=== PATIENT | female | born 1990 | race American Indian/Alaskan Native ===

== ENCOUNTER 2017-07-25 11:29 | Emergency (ER) | payer SELFPAY ==
[2017-07-25 11:37] VITALS: BP 108/75
--- NOTE | 2017-07-25 13:05 | Emergency Department Report ---
ED ENT HPI - General Chief complaint: Earache Stated complaint: LEFT SIDE EAR PAIN Time Seen by Provider: 07/25/17 12:58 Source: patient Mode of arrival: Ambulatory Limitations: No Limitations - History of Present Illness Initial comments: This is a 26-year-old female nontoxic, well nourished in appearance, no acute signs of distress presents to the ED with c/o of left earache 1 day. Patient stated last week she had upper mastoid symptoms now developed ear pain. Patient denies any mastoid tenderness or ear canal discharge. Patient denies any tragus pain. Patient denies any headache, stiff neck, fever, chills, nausea , vomiting, chest pain instructed by. Patient denies any allergies or significant past medical history. Patient denies any hearing abnormalities or decreased. MD complaint: ear pain -: days(s) (1) Location: L ear Severity: mild Severity scale (0 -10): 8 Quality: aching Consistency: constant Improves with: none Worsens with: none Associated Symptoms: denies: fever, cough, gum swelling, toothache, pain with swallowing, sore throat, tinnitus, hearing loss, discharge from ear, rhinorrhea - Related Data Previous Rx's Medication Instructions Recorded Last Taken Type Amoxicillin [Amoxicillin TAB] 875 mg PO BID #20 tablet 04/30/15 Unknown Rx Ibuprofen [Motrin 800 MG tab] 800 mg PO Q8HR PRN #30 tablet 04/30/15 Unknown Rx Amoxicillin [Amoxicillin TAB] 875 mg PO BID #20 tablet 07/25/17 Unknown Rx Allergies Allergy/AdvReac Type Severity Reaction Status Date / Time No Known Allergies Allergy Unverified 04/30/15 13:20 ED Dental HPI - General Chief complaint: Earache Stated complaint: LEFT SIDE EAR PAIN Time Seen by Provider: 07/25/17 12:58 Source: patient Mode of arrival: Ambulatory Limitations: No Limitations - Related Data Previous Rx's Medication Instructions Recorded Last Taken Type Amoxicillin [Amoxicillin TAB] 875 mg PO BID #20 tablet 04/30/15 Unknown Rx Ibuprofen [Motrin 800 MG tab] 800 mg PO Q8HR PRN #30 tablet 04/30/15 Unknown Rx Amoxicillin [Amoxicillin TAB] 875 mg PO BID #20 tablet 07/25/17 Unknown Rx Allergies Allergy/AdvReac Type Severity Reaction Status Date / Time No Known Allergies Allergy Unverified 04/30/15 13:20 ED Review of Systems ROS: Stated complaint: LEFT SIDE EAR PAIN Other details as noted in HPI Constitutional: denies: chills, fever Eyes: denies: eye pain, eye discharge, vision change ENT: ear pain. denies: throat pain Respiratory: denies: cough, shortness of breath, wheezing Cardiovascular: denies: chest pain, palpitations Endocrine: no symptoms reported Gastrointestinal: denies: abdominal pain, nausea, diarrhea Genitourinary: denies: urgency, dysuria, discharge Musculoskeletal: denies: back pain, joint swelling, arthralgia Skin: denies: rash, lesions Neurological: denies: headache, weakness, paresthesias Psychiatric: denies: anxiety, depression Hematological/Lymphatic: denies: easy bleeding, easy bruising ED Past Medical Hx - Past Medical History Previous Medical History?: No - Medications Home Medications: Home Medications Medication Instructions Recorded Confirmed Last Taken Type Amoxicillin [Amoxicillin TAB] 875 mg PO BID #20 tablet 04/30/15 Unknown Rx Ibuprofen [Motrin 800 MG tab] 800 mg PO Q8HR PRN #30 tablet 04/30/15 Unknown Rx Amoxicillin [Amoxicillin TAB] 875 mg PO BID #20 tablet 07/25/17 Unknown Rx ED Physical Exam - General Limitations: No Limitations General appearance: alert, in no apparent distress - Head Head exam: Present: atraumatic, normocephalic - Eye Eye exam: Present: normal appearance - ENT ENT exam: Present: normal exam, normal orophraynx, mucous membranes moist - Expanded ENT Exam Expanded Ear exam: Present: normal external inspection TM/Canal exam: Erythema: Left TM, Bulging: Left TM Mouth exam: Present: normal external inspection, tongue normal. Absent: drooling, trismus, muffled voice, tongue elevation, laceration Teeth exam: Present: normal inspection Throat exam: Positive: normal inspection, other (Uvula midline. ). Negative: tonsillar erythema, tonsillomegaly, tonsillar exudate, R peritonsillar mass, L peritonsillar mass - Neck Neck exam: Present: normal inspection - Respiratory Respiratory exam: Present: normal lung sounds bilaterally. Absent: respiratory distress - Cardiovascular Cardiovascular Exam: Present: regular rate, normal rhythm. Absent: systolic murmur, diastolic murmur, rubs, gallop - GI/Abdominal GI/Abdominal exam: Present: soft, normal bowel sounds - Extremities Exam Extremities exam: Present: normal inspection - Back Exam Back exam: Present: normal inspection - Neurological Exam Neurological exam: Present: alert, oriented X3 - Psychiatric Psychiatric exam: Present: normal affect, normal mood - Skin Skin exam: Present: warm, dry, intact, normal color. Absent: rash ED Course Vital Signs 07/25/17 11:34 Temperature 97.8 F Pulse Rate 81 Respiratory 16 Rate Blood Pressure 108/75 O2 Sat by Pulse 97 Oximetry - Reevaluation(s) Reevaluation #1: 07/25/17 13:04 Patient is speaking in full sentences with no signs of distress noted. ED Medical Decision Making - Medical Decision Making this is a 26-year-old that presents with left otitis media. Upon examination there is no mastoid tenderness, ear canal discharge, or tragus pain. Normal hearing. Patient is discharged with amoxicillin. Patient was instructed to Follow-up with a primary care/ENT doctor in 3-5 days or if symptoms worsen and continue return to emergency room as soon as possible. At time of discharge, the patient does not seem toxic or ill in appearance. No acute signs of distress noted. Patient agrees to discharge treatment plan of care. No further questions noted by the patient. Critical care attestation.: If time is entered above; I have spent that time in minutes in the direct care of this critically ill patient, excluding procedure time. ED Disposition Clinical Impression: Otitis media Qualifiers: Otitis media type: unspecified Laterality: left Qualified Code(s): H66.92 - Otitis media, unspecified, left ear Disposition: - TO HOME OR SELFCARE Is pt being admited?: No Does the pt Need Aspirin: No Condition: Stable Instructions: Otitis Media (ED), Amoxicillin (By mouth) Additional Instructions: Follow-up with a primary care/ENT doctor in 3-5 days or if symptoms worsen and continue return to emergency room as soon as possible. Prescriptions: Amoxicillin [Amoxicillin TAB] 875 mg PO BID #20 tablet Referrals: PRIMARY MD AMBER [Primary Care Provider] - 3-5 Days ROSHNI ALONSO MD [Staff Physician] - 3-5 Days [facility] [Outside] - 3-5 Days EDIL PARISH MD [Staff Physician] - 3-5 Days [facility] [Outside] - 3-5 Days Forms: Work/School Release Form(ED)
== END 2017-07-25 13:15 | disposition home or self-care (01) ==
LOC: ED 11:29
DX: H66.92 Otitis media, unspecified, left ear (principal)
CPT/HCPCS: 99282

== ENCOUNTER 2017-09-20 11:18 | Emergency (ER) | payer SELFPAY ==
--- NOTE | 2017-09-20 12:28 | Emergency Department Report ---
ED ENT HPI - General Chief complaint: Earache Stated complaint: EARACHE Time Seen by Provider: 09/20/17 12:18 Source: patient Mode of arrival: Ambulatory Limitations: No Limitations - History of Present Illness Initial comments: This is a 27-year-old female nontoxic, well nourished in appearance, no acute signs of distress presents to the ED with c/o of sore throat and left earache x2 days. Patient Patient describes sore throat as swallowing razer blades. Patient denies any mastoid tenderness or tragus pain. Patient denies any hearing changes or loss. Patient denies any fever, chills, headache, stiff neck , nausea, vomiting, chest pain, shortness of breath, numbness or tingling. Patient denies any drooling or hoarseness. Patient denies any allergies or significant past medical history. MD complaint: sore throat, ear pain -: days(s) (2) Location: L ear, throat Severity: mild Severity scale (0 -10): 8 Quality: aching Consistency: constant Improves with: none Worsens with: swallowing Associated Symptoms: gum swelling, toothache, pain with swallowing, sore throat. denies: fever, cough, tinnitus, hearing loss, discharge from ear, rhinorrhea - Related Data Previous Rx's Medication Instructions Recorded Last Taken Type Amoxicillin [Amoxicillin TAB] 875 mg PO BID #20 tablet 04/30/15 Unknown Rx Ibuprofen [Motrin 800 MG tab] 800 mg PO Q8HR PRN #30 tablet 04/30/15 Unknown Rx Amoxicillin [Amoxicillin TAB] 875 mg PO BID #20 tablet 07/25/17 Unknown Rx Amoxicillin [Amoxicillin TAB] 875 mg PO BID #20 tablet 09/20/17 Unknown Rx Ibuprofen [Motrin] 600 mg PO Q8H PRN #30 tablet 09/20/17 Unknown Rx Nystas/Diphen/Xyl Visc/Mylanta 15 ml MM Q4H PRN 10 Days ml 09/20/17 Unknown Rx [Magic Mouthwash] Allergies Allergy/AdvReac Type Severity Reaction Status Date / Time No Known Allergies Allergy Unverified 04/30/15 13:20 ED Dental HPI - General Chief complaint: Earache Stated complaint: EARACHE Time Seen by Provider: 09/20/17 12:18 Source: patient Mode of arrival: Ambulatory Limitations: No Limitations - Related Data Previous Rx's Medication Instructions Recorded Last Taken Type Amoxicillin [Amoxicillin TAB] 875 mg PO BID #20 tablet 04/30/15 Unknown Rx Ibuprofen [Motrin 800 MG tab] 800 mg PO Q8HR PRN #30 tablet 04/30/15 Unknown Rx Amoxicillin [Amoxicillin TAB] 875 mg PO BID #20 tablet 07/25/17 Unknown Rx Amoxicillin [Amoxicillin TAB] 875 mg PO BID #20 tablet 09/20/17 Unknown Rx Ibuprofen [Motrin] 600 mg PO Q8H PRN #30 tablet 09/20/17 Unknown Rx Nystas/Diphen/Xyl Visc/Mylanta 15 ml MM Q4H PRN 10 Days ml 09/20/17 Unknown Rx [Magic Mouthwash] Allergies Allergy/AdvReac Type Severity Reaction Status Date / Time No Known Allergies Allergy Unverified 04/30/15 13:20 ED Review of Systems ROS: Stated complaint: EARACHE Other details as noted in HPI Constitutional: denies: chills, fever Eyes: denies: eye pain, eye discharge, vision change ENT: throat pain, dental pain. denies: ear pain Respiratory: denies: cough, shortness of breath, wheezing Cardiovascular: denies: chest pain, palpitations Endocrine: no symptoms reported Gastrointestinal: denies: abdominal pain, nausea, diarrhea Genitourinary: denies: urgency, dysuria, discharge Musculoskeletal: denies: back pain, joint swelling, arthralgia Skin: denies: rash, lesions Neurological: denies: headache, weakness, paresthesias Psychiatric: denies: anxiety, depression Hematological/Lymphatic: denies: easy bleeding, easy bruising ED Past Medical Hx - Past Medical History Previous Medical History?: No - Surgical History Past Surgical History?: Yes Additional Surgical History: - Social History Smoking Status: Never Smoker Substance Use Type: None - Medications Home Medications: Home Medications Medication Instructions Recorded Confirmed Last Taken Type Amoxicillin [Amoxicillin TAB] 875 mg PO BID #20 tablet 04/30/15 Unknown Rx Ibuprofen [Motrin 800 MG tab] 800 mg PO Q8HR PRN #30 tablet 04/30/15 Unknown Rx Amoxicillin [Amoxicillin TAB] 875 mg PO BID #20 tablet 07/25/17 Unknown Rx Amoxicillin [Amoxicillin TAB] 875 mg PO BID #20 tablet 09/20/17 Unknown Rx Ibuprofen [Motrin] 600 mg PO Q8H PRN #30 tablet 09/20/17 Unknown Rx Nystas/Diphen/Xyl Visc/Mylanta 15 ml MM Q4H PRN 10 Days ml 09/20/17 Unknown Rx [Magic Mouthwash] ED Physical Exam - General Limitations: No Limitations General appearance: alert, in no apparent distress - Head Head exam: Present: atraumatic, normocephalic - Eye Eye exam: Present: normal appearance Pupils: Present: normal accommodation - ENT ENT exam: Present: mucous membranes moist - Expanded ENT Exam Expanded Ear exam: Present: normal external inspection TM/Canal exam: Erythema: Left TM, Bulging: Left TM Mouth exam: Present: normal external inspection, tongue normal. Absent: drooling, trismus, muffled voice, tongue elevation, laceration Teeth exam: Present: normal inspection Throat exam: Positive: tonsillar erythema, tonsillomegaly (2+), tonsillar exudate, other (Uvula midline. No abscess noted or swelling noted. ). Negative : R peritonsillar mass, L peritonsillar mass - Neck Neck exam: Present: normal inspection, full ROM, lymphadenopathy (bilateral tonsillar). Absent: tenderness, meningismus - Respiratory Respiratory exam: Present: normal lung sounds bilaterally. Absent: respiratory distress, wheezes, rales, rhonchi, stridor - Cardiovascular Cardiovascular Exam: Present: regular rate, normal rhythm, normal heart sounds. Absent: bradycardia, tachycardia, irregular rhythm, systolic murmur, diastolic murmur, rubs, gallop - GI/Abdominal GI/Abdominal exam: Present: soft, normal bowel sounds - Extremities Exam Extremities exam: Present: normal inspection, full ROM, normal capillary refill - Back Exam Back exam: Present: normal inspection, full ROM - Neurological Exam Neurological exam: Present: alert, oriented X3, normal gait - Psychiatric Psychiatric exam: Present: normal affect, normal mood - Skin Skin exam: Present: warm, dry, intact, normal color. Absent: rash ED Course Vital Signs 09/20/17 11:32 Temperature 97.8 F Pulse Rate 84 Respiratory 16 Rate Blood Pressure 103/75 O2 Sat by Pulse 100 Oximetry - Reevaluation(s) Reevaluation #1: 09/20/17 12:26 Patient is speaking in full sentences with no signs of distress noted. Critical care attestation.: If time is entered above; I have spent that time in minutes in the direct care of this critically ill patient, excluding procedure time. ED Disposition Clinical Impression: Tonsillitis with exudate Otitis media Qualifiers: Otitis media type: unspecified Laterality: left Qualified Code(s): H66.92 - Otitis media, unspecified, left ear Disposition: - TO HOME OR SELFCARE Is pt being admited?: No Does the pt Need Aspirin: No Condition: Stable Instructions: Ibuprofen (By mouth), Amoxicillin (By mouth) Additional Instructions: Follow-up with a ENT doctor in 3-5 days or if symptoms worsen and continue return to emergency room as soon as possible. Prescriptions: Amoxicillin [Amoxicillin TAB] 875 mg PO BID #20 tablet Ibuprofen [Motrin] 600 mg PO Q8H PRN #30 tablet PRN Reason: Pain Nystas/Diphen/Xyl Visc/Mylanta [Magic Mouthwash] 15 ml MM Q4H PRN 10 Days ml PRN Reason: Sore Throat Referrals: PRIMARY CAREMD [Primary Care Provider] - 3-5 Days EDIL PARISH MD [Staff Physician] - 3-5 Days [facility] [Outside] - 3-5 Days [facility] [Outside] - 3-5 Days Forms: Work/School Release Form(ED)
[2017-09-20 12:50] VITALS: BP 108/75
== END 2017-09-20 13:11 | disposition home or self-care (01) ==
LOC: ED 11:18
DX: J03.90 Acute tonsillitis, unspecified (principal); H66.92 Otitis media, unspecified, left ear; K08.89 Other specified disorders of teeth and supporting structures
CPT/HCPCS: 99282

== ENCOUNTER 2018-10-25 07:21 | Emergency (ER) | payer SELFPAY ==
[2018-10-25 07:53] VITALS: BP 109/78
--- NOTE | 2018-10-25 09:04 | Emergency Department Report ---
ED General Adult HPI - General Chief complaint: Sore Throat Stated complaint: SORE THROAT PAIN/(L) EAR PAIN Time Seen by Provider: 10/25/18 08:59 Source: patient Mode of arrival: Ambulatory Limitations: No Limitations - History of Present Illness Initial comments: Patient is a 28-year-old female who is presenting with 2 days of sore throat and left ear pain. Patient states was worse this morning when she woke up. Patient states the pain with swallowing is a 6 out of 10 in severity. She was aching throbbing sensation in the left ear. Patient has a very mild nonproductive cough. Patient denies nausea vomiting diarrhea next stiffness fevers or chills at this time. - Related Data Previous Rx's Medication Instructions Recorded Last Taken Type Amoxicillin [Amoxicillin TAB] 875 mg PO BID #20 tablet 04/30/15 Unknown Rx Ibuprofen [Motrin 800 MG tab] 800 mg PO Q8HR PRN #30 tablet 04/30/15 Unknown Rx Amoxicillin [Amoxicillin TAB] 875 mg PO BID #20 tablet 07/25/17 Unknown Rx Amoxicillin [Amoxicillin TAB] 875 mg PO BID #20 tablet 09/20/17 Unknown Rx Ibuprofen [Motrin] 600 mg PO Q8H PRN #30 tablet 09/20/17 Unknown Rx Nystas/Diphen/Xyl Visc/Mylanta 15 ml MM Q4H PRN 10 Days ml 09/20/17 Unknown Rx [Magic Mouthwash] Amoxicillin 500 mg PO TID #30 capsule 05/08/18 Unknown Rx Ibuprofen [Motrin] 800 mg PO Q8HR PRN #30 tablet 05/08/18 Unknown Rx Azithromycin [Zithromax Z-BALDOMERO] 250 mg PO DAILY #6 tablet 10/25/18 Unknown Rx HYDROcodone/ACETAMINOPHEN 10 ml PO Q6H PRN #100 solution 10/25/18 Unknown Rx [Hydrocodon-Acetamin 7.5-325/15] predniSONE [Deltasone] 20 mg PO QDAY #5 tab 10/25/18 Unknown Rx Allergies Allergy/AdvReac Type Severity Reaction Status Date / Time No Known Allergies Allergy Verified 10/25/18 07:23 ED Review of Systems ROS: Stated complaint: SORE THROAT PAIN/(L) EAR PAIN Other details as noted in HPI Comment: All other systems reviewed and negative ED Past Medical Hx - Past Medical History Previous Medical History?: No - Surgical History Past Surgical History?: Yes Additional Surgical History: - Social History Smoking Status: Never Smoker Substance Use Type: None - Medications Home Medications: Home Medications Medication Instructions Recorded Confirmed Last Taken Type Amoxicillin [Amoxicillin TAB] 875 mg PO BID #20 tablet 04/30/15 Unknown Rx Ibuprofen [Motrin 800 MG tab] 800 mg PO Q8HR PRN #30 tablet 04/30/15 Unknown Rx Amoxicillin [Amoxicillin TAB] 875 mg PO BID #20 tablet 07/25/17 Unknown Rx Amoxicillin [Amoxicillin TAB] 875 mg PO BID #20 tablet 09/20/17 Unknown Rx Ibuprofen [Motrin] 600 mg PO Q8H PRN #30 tablet 09/20/17 Unknown Rx Nystas/Diphen/Xyl Visc/Mylanta 15 ml MM Q4H PRN 10 Days ml 09/20/17 Unknown Rx [Magic Mouthwash] Amoxicillin 500 mg PO TID #30 capsule 05/08/18 Unknown Rx Ibuprofen [Motrin] 800 mg PO Q8HR PRN #30 tablet 05/08/18 Unknown Rx Azithromycin [Zithromax Z-BALDOMERO] 250 mg PO DAILY #6 tablet 10/25/18 Unknown Rx HYDROcodone/ACETAMINOPHEN 10 ml PO Q6H PRN #100 solution 10/25/18 Unknown Rx [Hydrocodon-Acetamin 7.5-325/15] predniSONE [Deltasone] 20 mg PO QDAY #5 tab 10/25/18 Unknown Rx ED Physical Exam - General Limitations: No Limitations General appearance: alert, in no apparent distress - Head Head exam: Present: atraumatic, normocephalic - Eye Eye exam: Present: normal appearance - ENT ENT exam: Present: mucous membranes moist - Expanded ENT Exam Expanded Ear exam: Present: normal external inspection TM/Canal exam: Effusion: Left TM (small amt of cloudy fluid behind TM without TM dullness or erythema) Mouth exam: Present: normal external inspection, tongue normal. Absent: drooling, trismus, muffled voice, tongue elevation, laceration Throat exam: Positive: normal inspection. Negative: tonsillar erythema, tonsillomegaly, tonsillar exudate, R peritonsillar mass, L peritonsillar mass - Neck Neck exam: Present: normal inspection - Respiratory Respiratory exam: Present: normal lung sounds bilaterally. Absent: respiratory distress, wheezes, rales, rhonchi, stridor - Cardiovascular Cardiovascular Exam: Present: regular rate, normal rhythm, normal heart sounds. Absent: systolic murmur, diastolic murmur, rubs, gallop - GI/Abdominal GI/Abdominal exam: Present: soft, normal bowel sounds. Absent: distended, tenderness, guarding, rebound, rigid - Extremities Exam Extremities exam: Present: normal inspection - Back Exam Back exam: Present: normal inspection - Neurological Exam Neurological exam: Present: alert, oriented X3 - Psychiatric Psychiatric exam: Present: normal affect, normal mood - Skin Skin exam: Present: warm, dry, intact, normal color. Absent: rash ED Course Vital Signs 10/25/18 07:50 Temperature 98.5 F Pulse Rate 93 H Respiratory 18 Rate Blood Pressure 109/78 O2 Sat by Pulse 100 Oximetry ED Medical Decision Making - Medical Decision Making Patient's does have a small amount of cloudy fluid behind the left TM. Patient likely with a viral pharyngitis and otitis media. Patient given steroids minutes for symptomatic relief. Prescription has been given for Z-Baldomero as well to not be filled unless her symptoms persist greater than another 3 days. Critical care attestation.: If time is entered above; I have spent that time in minutes in the direct care of this critically ill patient, excluding procedure time. ED Disposition Clinical Impression: Viral pharyngitis Disposition: -01 TO HOME OR SELFCARE Is pt being admited?: No Does the pt Need Aspirin: No Condition: Stable Instructions: Pharyngitis (ED), Viral Syndrome (ED) Referrals: JE CAUSEY MD [Primary Care Provider] - 3-5 Days Time of Disposition: 09:06
== END 2018-10-25 09:38 | disposition home or self-care (01) ==
LOC: ED 07:21
DX: J02.8 Acute pharyngitis due to other specified organisms (principal)
CPT/HCPCS: 99282

== ENCOUNTER 2018-10-27 05:13 | Emergency (ER) | payer SELFPAY ==
[2018-10-27 05:27] VITALS: BP 119/86
--- NOTE | 2018-10-27 07:22 | Emergency Department Report ---
Minor Respiratory - HPI Chief Complaint: Upper Respiratory Infection Stated Complaint: THROAT PAIN/SWELLING Duration: 4 Days Pain Location: Throat Severity: moderate Minor Respiratory: Yes Sore Throat, Yes Able to Tolerate Fluids, Yes Sick Contacts (works in daycare), No Rhinorrhea, No Ear Pain, No Cough, No Hemoptysis, No Chest Pain, No Shortness of Breath, No Fever Other History: This is a 28 year-old female who presents to the emergency room with sore throat for 4 days. Patient states she was seen in this emergency room and treated for pharyngitis 2 days ago. Patient states the pharmacy was unable to fill prescription prescribed because they are on back order. States she felt fine fore one day and symptoms increased. She denies difficulty swallowing, cough, hoarseness, drooling, trismus, or fever. ED Review of Systems ROS: Stated complaint: THROAT PAIN/SWELLING Other details as noted in HPI Constitutional: denies: chills, fever ENT: throat pain. denies: ear pain Respiratory: denies: cough, shortness of breath, wheezing Cardiovascular: denies: chest pain, palpitations Gastrointestinal: denies: abdominal pain, nausea, diarrhea Musculoskeletal: denies: back pain, joint swelling, arthralgia Skin: denies: rash, lesions Neurological: denies: headache, weakness, paresthesias Psychiatric: denies: anxiety, depression ED Past Medical Hx - Past Medical History Previous Medical History?: No - Surgical History Past Surgical History?: Yes Additional Surgical History: - Social History Smoking Status: Never Smoker Substance Use Type: None - Medications Home Medications: Home Medications Medication Instructions Recorded Confirmed Last Taken Type Amoxicillin [Amoxicillin TAB] 875 mg PO BID #20 tablet 04/30/15 Unknown Rx Ibuprofen [Motrin 800 MG tab] 800 mg PO Q8HR PRN #30 tablet 04/30/15 Unknown Rx Amoxicillin [Amoxicillin TAB] 875 mg PO BID #20 tablet 07/25/17 Unknown Rx Amoxicillin [Amoxicillin TAB] 875 mg PO BID #20 tablet 09/20/17 Unknown Rx Ibuprofen [Motrin] 600 mg PO Q8H PRN #30 tablet 09/20/17 Unknown Rx Nystas/Diphen/Xyl Visc/Mylanta 15 ml MM Q4H PRN 10 Days ml 09/20/17 Unknown Rx [Magic Mouthwash] Amoxicillin 500 mg PO TID #30 capsule 05/08/18 Unknown Rx Ibuprofen [Motrin] 800 mg PO Q8HR PRN #30 tablet 05/08/18 Unknown Rx Azithromycin [Zithromax Z-BALDOMERO] 250 mg PO DAILY #6 tablet 10/25/18 Unknown Rx HYDROcodone/ACETAMINOPHEN 10 ml PO Q6H PRN #100 solution 10/25/18 Unknown Rx [Hydrocodon-Acetamin 7.5-325/15] predniSONE [Deltasone] 20 mg PO QDAY #5 tab 10/25/18 Unknown Rx Naproxen [Naprosyn] 500 mg PO Q6H PRN #20 tablet 10/27/18 Unknown Rx Prednisone [predniSONE 10 mg 10 mg PO .TAPER #1 tab.ds.pk 10/27/18 Unknown Rx (6-Day Pack, 21 Tabs)] Minor Respiratory Exam - Exam General: Vital signs noted. No distress. Alert and acting appropriately. HEENT: Yes Pharyngeal Erythema (enlarged erythematous tonsils with white exudate, uvula midline), Yes Pharyngeal Exudates, Yes Moist Mucous Membranes, No Rhinorrhea, No Conjuctival Injection, No Frontal Tenderness, No Maxillary Tenderness Ear: Neither TM Bulge, Neither TM Erythema, Neither EAC Pain, Neither EAC Discharge Neck: Yes Adenopathy (anterior cervical lymphadenopathy, tenderness, mobile), Yes Supple Lungs: Yes Good Air Exchange, No Wheezes, No Ronchi, No Stridor, No Cough, No Labored Respirations, No Retractions, No Use of Accessory Muscles, No Other Abnormal Lung Sounds Heart: Yes Regular, No Murmur Abdomen: Yes Normal Bowel Sounds, No Tenderness, No Peritoneal Signs Skin: No Rash, No Edema Neurologic: Alert and oriented, no deficits. Musculoskeletal: Unremarkable. ED Course Vital Signs 10/27/18 05:21 Temperature 97.8 F Pulse Rate 110 H Respiratory 18 Rate Blood Pressure 119/86 O2 Sat by Pulse 99 Oximetry Vital Signs 10/27/18 10/27/18 05:21 08:09 Temperature 97.8 F Pulse Rate 110 H 88 Respiratory 18 16 Rate Blood Pressure 119/86 O2 Sat by Pulse 99 99 Oximetry ED Medical Decision Making - Lab Data Lab Results 10/27/18 Range/Units 05:27 Group A Strep Rapid Negative (Negative) - Medical Decision Making This is a 28 y.o. female that presents with sore throat for 4 days. Patient examined by me and stable. No distress noted. Rapid strep obtained and negative pending culture vitals stable. Centor score of 3 points with 28% to 35% chance of strep throat. Given bicillin I-A and dexamethasone IM once in ER. Patient has prescriptions for prednisone from prior visit. Take naproxen for pain. Discussed plan with patient and he agreed with plan to treat outpatient. Discharged home. Return to work tomorrow. Follow up with PCP in 48-72 hours. - Differential Diagnosis peritonsillar abscess, gonorrhea Critical care attestation.: If time is entered above; I have spent that time in minutes in the direct care of this critically ill patient, excluding procedure time. ED Disposition Clinical Impression: Sore throat Acute pharyngitis Qualifiers: Pharyngitis/tonsillitis etiology: unspecified etiology Qualified Code(s): J02.9 - Acute pharyngitis, unspecified Disposition: TO HOME OR SELFCARE Is pt being admited?: No Does the pt Need Aspirin: No Condition: Stable Instructions: Pharyngitis (ED) Additional Instructions: Expect symptoms to improve within 3 or 4 days. There is no need for bed rest or isolation. Use Tylenol or ibuprofen for symptoms of sore throat, headache, and fever. Return to work in 24 hours of taking antibiotics. Follow up with Primary Care Provider in 48-72 hours. Prescriptions: Naproxen [Naprosyn] 500 mg PO Q6H PRN #20 tablet PRN Reason: Pain , Severe (7-10) Prednisone [predniSONE 10 mg (6-Day Pack, 21 Tabs)] 10 mg PO .TAPER #1 tab.ds.pk Referrals: MONICA CASPER MD [Primary Care Provider] - 3-5 Days [facility] [Outside] - 3-5 Days [facility] [Outside] - 3-5 Days Forms: Work/School Release Form(ED) Time of Disposition: 07:35
[2018-10-27] MEDS ORDERED: BICILLIN L-A IM ONE (07:23)
[2018-10-27] MEDS ORDERED: DECADRON IM ONE (07:23)
== END 2018-10-27 08:10 | disposition home or self-care (01) ==
LOC: ED 05:13
DX: J02.9 Acute pharyngitis, unspecified (principal); Z79.899 Other long term (current) drug therapy
CPT/HCPCS: 87116; 87430; 96372; 99283; J0561; J1100

== ENCOUNTER 2018-11-18 11:51 | Emergency (ER) | payer OTHER ==
[2018-11-18 12:01] VITALS: BP 115/81
--- NOTE | 2018-11-18 12:12 | Emergency Department Report ---
ED ENT HPI - General Chief complaint: Earache Stated complaint: SORE THROAT/EAR PAIN/COUGH Source: patient Mode of arrival: Ambulatory Limitations: No Limitations - History of Present Illness Initial comments: 28 y/o female comes in for left ear pain and sore throat times 1 week. Patient was seen here 3 weeks ago for the same and was prescribed antibiotics. Patient admits to having allergies. She has been taking ibuprofen for pain. MD complaint: sore throat, ear pain Onset/Timin -: week(s) Location: L ear, throat Severity scale (0 -10): 5 Quality: aching Consistency: intermittent Improves with: none Worsens with: none Associated Symptoms: sore throat. denies: fever, cough, discharge from ear - Related Data Previous Rx's Medication Instructions Recorded Last Taken Type Amoxicillin [Amoxicillin TAB] 875 mg PO BID #20 tablet 04/30/15 Unknown Rx Ibuprofen [Motrin 800 MG tab] 800 mg PO Q8HR PRN #30 tablet 04/30/15 Unknown Rx Amoxicillin [Amoxicillin TAB] 875 mg PO BID #20 tablet 07/25/17 Unknown Rx Amoxicillin [Amoxicillin TAB] 875 mg PO BID #20 tablet 09/20/17 Unknown Rx Ibuprofen [Motrin] 600 mg PO Q8H PRN #30 tablet 09/20/17 Unknown Rx Nystas/Diphen/Xyl Visc/Mylanta 15 ml MM Q4H PRN 10 Days ml 09/20/17 Unknown Rx [Magic Mouthwash] Amoxicillin 500 mg PO TID #30 capsule 05/08/18 Unknown Rx Ibuprofen [Motrin] 800 mg PO Q8HR PRN #30 tablet 05/08/18 Unknown Rx Azithromycin [Zithromax Z-BALDOMERO] 250 mg PO DAILY #6 tablet 10/25/18 Unknown Rx HYDROcodone/ACETAMINOPHEN 10 ml PO Q6H PRN #100 solution 10/25/18 Unknown Rx [Hydrocodon-Acetamin 7.5-325/15] predniSONE [Deltasone] 20 mg PO QDAY #5 tab 10/25/18 Unknown Rx Naproxen [Naprosyn] 500 mg PO Q6H PRN #20 tablet 10/27/18 Unknown Rx Prednisone [predniSONE 10 mg 10 mg PO .TAPER #1 tab.ds.pk 10/27/18 Unknown Rx (6-Day Pack, 21 Tabs)] Cetirizine HCl [Zyrtec 10mg tab] 10 mg PO QDAY 30 Days #30 tablet 11/18/18 Unknown Rx Allergies Allergy/AdvReac Type Severity Reaction Status Date / Time No Known Allergies Allergy Verified 10/25/18 07:23 ED Dental HPI - General Chief complaint: Earache Stated complaint: SORE THROAT/EAR PAIN/COUGH Source: patient Mode of arrival: Ambulatory Limitations: No Limitations - Related Data Previous Rx's Medication Instructions Recorded Last Taken Type Amoxicillin [Amoxicillin TAB] 875 mg PO BID #20 tablet 04/30/15 Unknown Rx Ibuprofen [Motrin 800 MG tab] 800 mg PO Q8HR PRN #30 tablet 04/30/15 Unknown Rx Amoxicillin [Amoxicillin TAB] 875 mg PO BID #20 tablet 07/25/17 Unknown Rx Amoxicillin [Amoxicillin TAB] 875 mg PO BID #20 tablet 09/20/17 Unknown Rx Ibuprofen [Motrin] 600 mg PO Q8H PRN #30 tablet 09/20/17 Unknown Rx Nystas/Diphen/Xyl Visc/Mylanta 15 ml MM Q4H PRN 10 Days ml 09/20/17 Unknown Rx [Magic Mouthwash] Amoxicillin 500 mg PO TID #30 capsule 05/08/18 Unknown Rx Ibuprofen [Motrin] 800 mg PO Q8HR PRN #30 tablet 05/08/18 Unknown Rx Azithromycin [Zithromax Z-BALDOMERO] 250 mg PO DAILY #6 tablet 10/25/18 Unknown Rx HYDROcodone/ACETAMINOPHEN 10 ml PO Q6H PRN #100 solution 10/25/18 Unknown Rx [Hydrocodon-Acetamin 7.5-325/15] predniSONE [Deltasone] 20 mg PO QDAY #5 tab 10/25/18 Unknown Rx Naproxen [Naprosyn] 500 mg PO Q6H PRN #20 tablet 10/27/18 Unknown Rx Prednisone [predniSONE 10 mg 10 mg PO .TAPER #1 tab.ds.pk 10/27/18 Unknown Rx (6-Day Pack, 21 Tabs)] Cetirizine HCl [Zyrtec 10mg tab] 10 mg PO QDAY 30 Days #30 tablet 11/18/18 Unknown Rx Allergies Allergy/AdvReac Type Severity Reaction Status Date / Time No Known Allergies Allergy Verified 10/25/18 07:23 ED Review of Systems ROS: Stated complaint: SORE THROAT/EAR PAIN/COUGH Other details as noted in HPI Constitutional: denies: chills, fever ENT: ear pain, throat pain Respiratory: cough Cardiovascular: denies: chest pain, palpitations Endocrine: no symptoms reported Gastrointestinal: denies: abdominal pain, nausea, diarrhea Genitourinary: denies: urgency, dysuria, discharge ED Past Medical Hx - Past Medical History Previous Medical History?: No - Surgical History Past Surgical History?: Yes Additional Surgical History: - Social History Smoking Status: Never Smoker Substance Use Type: None - Medications Home Medications: Home Medications Medication Instructions Recorded Confirmed Last Taken Type Amoxicillin [Amoxicillin TAB] 875 mg PO BID #20 tablet 04/30/15 Unknown Rx Ibuprofen [Motrin 800 MG tab] 800 mg PO Q8HR PRN #30 tablet 04/30/15 Unknown Rx Amoxicillin [Amoxicillin TAB] 875 mg PO BID #20 tablet 07/25/17 Unknown Rx Amoxicillin [Amoxicillin TAB] 875 mg PO BID #20 tablet 09/20/17 Unknown Rx Ibuprofen [Motrin] 600 mg PO Q8H PRN #30 tablet 09/20/17 Unknown Rx Nystas/Diphen/Xyl Visc/Mylanta 15 ml MM Q4H PRN 10 Days ml 09/20/17 Unknown Rx [Magic Mouthwash] Amoxicillin 500 mg PO TID #30 capsule 05/08/18 Unknown Rx Ibuprofen [Motrin] 800 mg PO Q8HR PRN #30 tablet 05/08/18 Unknown Rx Azithromycin [Zithromax Z-BALDOMERO] 250 mg PO DAILY #6 tablet 10/25/18 Unknown Rx HYDROcodone/ACETAMINOPHEN 10 ml PO Q6H PRN #100 solution 10/25/18 Unknown Rx [Hydrocodon-Acetamin 7.5-325/15] predniSONE [Deltasone] 20 mg PO QDAY #5 tab 10/25/18 Unknown Rx Naproxen [Naprosyn] 500 mg PO Q6H PRN #20 tablet 10/27/18 Unknown Rx Prednisone [predniSONE 10 mg 10 mg PO .TAPER #1 tab.ds.pk 10/27/18 Unknown Rx (6-Day Pack, 21 Tabs)] Cetirizine HCl [Zyrtec 10mg tab] 10 mg PO QDAY 30 Days #30 tablet 11/18/18 Unknown Rx ED Physical Exam - General Limitations: No Limitations General appearance: alert, in no apparent distress - Head Head exam: Present: atraumatic, normocephalic - Eye Eye exam: Present: normal appearance - ENT ENT exam: Present: mucous membranes moist - Neck Neck exam: Present: normal inspection - Respiratory Respiratory exam: Present: normal lung sounds bilaterally. Absent: respiratory distress - Cardiovascular Cardiovascular Exam: Present: regular rate, normal rhythm. Absent: systolic murmur, diastolic murmur, rubs, gallop - GI/Abdominal GI/Abdominal exam: Present: soft, normal bowel sounds - Extremities Exam Extremities exam: Present: normal inspection - Back Exam Back exam: Present: normal inspection - Neurological Exam Neurological exam: Present: alert, oriented X3 - Psychiatric Psychiatric exam: Present: normal affect, normal mood - Skin Skin exam: Present: warm, dry, intact, normal color. Absent: rash ED Course Vital Signs 11/18/18 12:00 Temperature 98.8 F Pulse Rate 98 H Respiratory 16 Rate Blood Pressure 115/81 O2 Sat by Pulse 98 Oximetry ED Medical Decision Making - Medical Decision Making Discussed with patient that I do not see any signs of infection recommend zyrtec and flonase. Folllow up with your PCP. Critical care attestation.: If time is entered above; I have spent that time in minutes in the direct care of this critically ill patient, excluding procedure time. ED Disposition Clinical Impression: Allergic rhinitis Qualifiers: Allergic rhinitis trigger: unspecified Allergic rhinitis seasonality: seasonal Qualified Code(s): J30.2 - Other seasonal allergic rhinitis Disposition: DC-01 TO HOME OR SELFCARE Is pt being admited?: No Does the pt Need Aspirin: No Condition: Stable Instructions: Allergic Rhinitis (ED) Additional Instructions: Take meds as prescribed. Prescriptions: Cetirizine HCl [Zyrtec 10mg tab] 10 mg PO QDAY 30 Days #30 tablet Referrals: JE CAUSEY MD [Primary Care Provider] - 3-5 Days Your, Primary provider. [Other] - 3-5 Days
== END 2018-11-18 13:04 | disposition home or self-care (01) ==
LOC: ED 11:51
DX: J30.9 Allergic rhinitis, unspecified (principal)

== ENCOUNTER 2019-01-30 08:23 | Emergency (ER) | payer SELFPAY ==
[2019-01-30 08:37] VITALS: BP 117/82
--- NOTE | 2019-01-30 10:03 | Emergency Department Report ---
Pediatric URI - HPI Chief Complaint: Upper Respiratory Infection Stated Complaint: POSS SINUS INFECTION Time Seen by Provider: 01/30/19 09:31 Symptoms: Yes Rhinorrhea, Yes Able to Tolerate Fluids, Yes Good Urine Output, Yes Listless Behavior, No Sore Throat, No Ear Pain, No Cough, No Shortness of Breath, No Sick Contacts Other History: 28-year-old -[place] female presents to the emergency room complaining of nasal congestion runny nose frontal nasal pressure elevated temperature on Monday. Patient reports she didn't take an [id number] TheraFlu and Benadryl without much resolution of symptoms. Patient denies any past medical history takes no medications on a daily basis and has no known drug allergies. ED Review of Systems ROS: Stated complaint: POSS SINUS INFECTION Other details as noted in HPI Comment: All other systems reviewed and negative ENT: congestion, other (diarrhea, sneezing). denies: ear pain, throat pain Respiratory: denies: cough, shortness of breath, wheezing Cardiovascular: denies: chest pain, palpitations Endocrine: no symptoms reported Gastrointestinal: denies: abdominal pain, nausea, diarrhea Pediatric Past Medical History - Surgeries & Procedures Additional Surgical History: ED Peds URI Exam - Exam General: Vital signs noted. No distress. Alert and acting appropriately. HEENT: Yes Moist Mucous Membranes, Yes Frontal Tenderness, Yes Maxillary Tenderness, No Pharyngeal Erythema, No Pharyngeal Exudates, No Rhinorrhea, No Conjuctival Injection Ear: Neither TM Bulge, Neither TM Erythema, Neither EAC Pain, Neither EAC Discharge, Neither Cerumen Impaction Neck: No Adenopathy, No Supple Lungs: No Good Air Exchange, No Wheezes, No Ronchi, No Stridor, No Cough, No Labored Respirations, No Retractions, No Use of Accessory Muscles, No Other Abnormal Lung Sounds Heart: Yes Regular, No Murmur Abdomen: Yes Normal Bowel Sounds, No Tenderness, No Peritoneal Signs Skin: No Rash, No Eczema Neurologic: Alert and oriented, no deficits. Musculoskeletal: Unremarkable. ED Course Vital Signs 01/30/19 08:36 Temperature 98.5 F Pulse Rate 104 H Respiratory 14 Rate Blood Pressure 117/82 [Right] O2 Sat by Pulse 96 Oximetry ED Medical Decision Making - Medical Decision Making 28-year-old -[place] female presents to the emergency room complaining of nasal congestion runny nose frontal nasal pressure elevated temperature on Monday. Patient reports she didn't take an [id number] TheraFlu and Benadryl without much resolution of symptoms. Patient denies any past medical history takes no medications on a daily basis and has no known drug allergies. Allergic rhinitis. Discussed the patient to take Flonase as prescribed. Zyrtec-D and Afrin at night. Critical care attestation.: If time is entered above; I have spent that time in minutes in the direct care of this critically ill patient, excluding procedure time. ED Disposition Clinical Impression: Allergic rhinitis Qualifiers: Allergic rhinitis trigger: unspecified Allergic rhinitis seasonality: unspecified Qualified Code(s): J30.9 - Allergic rhinitis, unspecified Disposition: - TO HOME OR SELFCARE Is pt being admited?: No Does the pt Need Aspirin: No Condition: Stable Instructions: Allergic Rhinitis (ED) Additional Instructions: Please take medications as prescribed. Please follow up with her primary care provider if his symptoms persist or gets worse. Prescriptions: Fluticasone Furoate [Flonase Sensimist] 2 spray NS QDAY #5.9 ml Oxymetazoline HCl [No Drip Nasal [place]] 1 spray NS BID PRN #1 bottle PRN Reason: Congestion Cetirizine HCl/Pseudoephedrine [Zyrtec-D Tablet] 1 each PO BID #30 tab.er.12h Referrals: [facility] [Outside] - 3-5 Days Forms: Work/School Release Form(ED)
== END 2019-01-30 10:23 | disposition home or self-care (01) ==
LOC: ED 08:23
DX: J30.9 Allergic rhinitis, unspecified (principal)
CPT/HCPCS: 99282

== ENCOUNTER 2019-02-02 08:53 | Emergency (ER) | payer SELFPAY ==
[2019-02-02 09:12] VITALS: BP 121/80
--- NOTE | 2019-02-02 09:34 | Emergency Department Report ---
ED General Adult HPI - General Chief complaint: Eye Problems Stated complaint: SORE THROAT/POSS PINK EYE Time Seen by Provider: 02/02/19 09:20 Source: patient Mode of arrival: Ambulatory Limitations: No Limitations - History of Present Illness Initial comments: Patient is a 28-year-old female who presents emergency room with complaints of right eye erythema that began 2 days ago. she has associated mucus drainage, crusting, eyelash matting. pt denies getting anything into the eye. she denies any contact lens use. she states also for the last 2 days she has had congestion, sore throat feels itchy and dry. She denies any fever, cough, earache. she denies any past medical history or allergies to medications. 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 LNMP was January 18. - Related Data Previous Rx's Medication Instructions Recorded Last Taken Type Amoxicillin [Amoxicillin TAB] 875 mg PO BID #20 tablet 04/30/15 Unknown Rx Ibuprofen [Motrin 800 MG tab] 800 mg PO Q8HR PRN #30 tablet 04/30/15 Unknown Rx Amoxicillin [Amoxicillin TAB] 875 mg PO BID #20 tablet 07/25/17 Unknown Rx Amoxicillin [Amoxicillin TAB] 875 mg PO BID #20 tablet 09/20/17 Unknown Rx Ibuprofen [Motrin] 600 mg PO Q8H PRN #30 tablet 09/20/17 Unknown Rx Nystas/Diphen/Xyl Visc/Mylanta 15 ml MM Q4H PRN 10 Days ml 09/20/17 Unknown Rx [Magic Mouthwash] Amoxicillin 500 mg PO TID #30 capsule 05/08/18 Unknown Rx Ibuprofen [Motrin] 800 mg PO Q8HR PRN #30 tablet 05/08/18 Unknown Rx Azithromycin [Zithromax Z-BALDOMERO] 250 mg PO DAILY #6 tablet 10/25/18 Unknown Rx HYDROcodone/ACETAMINOPHEN 10 ml PO Q6H PRN #100 solution 10/25/18 Unknown Rx [Hydrocodon-Acetamin 7.5-325/15] predniSONE [Deltasone] 20 mg PO QDAY #5 tab 10/25/18 Unknown Rx Naproxen [Naprosyn] 500 mg PO Q6H PRN #20 tablet 10/27/18 Unknown Rx Prednisone [predniSONE 10 mg 10 mg PO .TAPER #1 tab.ds.pk 10/27/18 Unknown Rx (6-Day Pack, 21 Tabs)] Cetirizine HCl [Zyrtec 10mg tab] 10 mg PO QDAY 30 Days #30 tablet 11/18/18 Unknown Rx Cetirizine HCl/Pseudoephedrine 1 each PO BID #30 tab.er.12h 01/30/19 Unknown Rx [Zyrtec-D Tablet] Fluticasone Furoate [Flonase 2 spray NS QDAY #5.9 ml 01/30/19 Unknown Rx S[facility]imist] Oxymetazoline HCl [No Drip Nasal 1 spray NS BID PRN #1 bottle 01/30/19 Unknown Rx [place]] Polymyxin B Sulf/Trimethoprim 1 drop OD QID 7 Days #1 bottle 02/02/19 Unknown Rx [Polytrim Eye Drops] Allergies Allergy/AdvReac Type Severity Reaction Status Date / Time No Known Allergies Allergy Verified 02/02/19 09:09 ED Review of Systems ROS: Stated complaint: SORE THROAT/POSS PINK EYE Other details as noted in HPI Comment: All other systems reviewed and negative ED Past Medical Hx - Past Medical History Previous Medical History?: No - Surgical History Past Surgical History?: Yes Additional Surgical History: - Social History Smoking Status: Never Smoker Substance Use Type: None - Medications Home Medications: Home Medications Medication Instructions Recorded Confirmed Last Taken Type Amoxicillin [Amoxicillin TAB] 875 mg PO BID #20 tablet 04/30/15 Unknown Rx Ibuprofen [Motrin 800 MG tab] 800 mg PO Q8HR PRN #30 tablet 04/30/15 Unknown Rx Amoxicillin [Amoxicillin TAB] 875 mg PO BID #20 tablet 07/25/17 Unknown Rx Amoxicillin [Amoxicillin TAB] 875 mg PO BID #20 tablet 09/20/17 Unknown Rx Ibuprofen [Motrin] 600 mg PO Q8H PRN #30 tablet 09/20/17 Unknown Rx Nystas/Diphen/Xyl Visc/Mylanta 15 ml MM Q4H PRN 10 Days ml 09/20/17 Unknown Rx [Magic Mouthwash] Amoxicillin 500 mg PO TID #30 capsule 05/08/18 Unknown Rx Ibuprofen [Motrin] 800 mg PO Q8HR PRN #30 tablet 05/08/18 Unknown Rx Azithromycin [Zithromax Z-BALDOMERO] 250 mg PO DAILY #6 tablet 10/25/18 Unknown Rx HYDROcodone/ACETAMINOPHEN 10 ml PO Q6H PRN #100 solution 10/25/18 Unknown Rx [Hydrocodon-Acetamin 7.5-325/15] predniSONE [Deltasone] 20 mg PO QDAY #5 tab 10/25/18 Unknown Rx Naproxen [Naprosyn] 500 mg PO Q6H PRN #20 tablet 10/27/18 Unknown Rx Prednisone [predniSONE 10 mg 10 mg PO .TAPER #1 tab.ds.pk 10/27/18 Unknown Rx (6-Day Pack, 21 Tabs)] Cetirizine HCl [Zyrtec 10mg tab] 10 mg PO QDAY 30 Days #30 tablet 11/18/18 Unknown Rx Cetirizine HCl/Pseudoephedrine 1 each PO BID #30 tab.er.12h 01/30/19 Unknown Rx [Zyrtec-D Tablet] Fluticasone Furoate [Flonase 2 spray NS QDAY #5.9 ml 01/30/19 Unknown Rx [employer]] Oxymetazoline HCl [No Drip Nasal 1 spray NS BID PRN #1 bottle 01/30/19 Unknown Rx [place]] Polymyxin B Sulf/Trimethoprim 1 drop OD QID 7 Days #1 bottle 02/02/19 Unknown Rx [Polytrim Eye Drops] ED Physical Exam - General Limitations: No Limitations General appearance: alert, in no apparent distress - Head Head exam: Present: atraumatic, normocephalic - Eye Eye exam: Present: PERRL, EOMI, conjunctival injection (right ). Absent: periorbital swelling, periorbital tenderness - ENT ENT exam: Present: normal orophraynx, mucous membranes moist, TM's normal bilaterally, normal external ear exam - Respiratory Respiratory exam: Present: normal lung sounds bilaterally. Absent: respiratory distress, wheezes, rales, rhonchi, stridor, chest wall tenderness, accessory muscle use, decreased breath sounds, prolonged expiratory - Cardiovascular Cardiovascular Exam: Present: regular rate, normal rhythm, normal heart sounds. Absent: systolic murmur, diastolic murmur, rubs, gallop - Neurological Exam Neurological exam: Present: alert, oriented X3 - Psychiatric Psychiatric exam: Present: normal affect, normal mood - Skin Skin exam: Present: warm, dry, intact ED Course Vital Signs 02/02/19 09:10 Temperature 98.5 F Pulse Rate 99 H Respiratory 16 Rate Blood Pressure 121/80 O2 Sat by Pulse 98 Oximetry ED Medical Decision Making - Medical Decision Making Patient is a 28-year-old female who presents emergency room with complaints of right eye erythema that began 2 days ago. she has associated mucus drainage, crusting, eyelash matting. pt denies getting anything into the eye. she denies any contact lens use. she states also for the last 2 days she has had congestion, sore throat feels itchy and dry. She denies any fever, cough, earache. she denies any past medical history or allergies to medications. 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 LNMP was January 18. on exam: right sided conjunctival injection, PERRL, EOMI, no periorbital edema or TTP, normal oropharynx, normal TMs and canals bilaterally, no sinus TTP. examination consistent with conjunctivitis. discussed with pt that URI symptoms most likely viral in nature as vitals are normal/afebrile, no signs of pharyngitis/tonsillitis or otitis media/externa. will prescribe abx eye drops. advised to use as prescribed. discussed symptomatic treatment for URI symptoms. Discussed to please drink plenty of water. may use Tylenol or ibuprofen for any discomfort. May use throat spray over the counter for throat discomfort. follow up with a primary care doctor in 3 days. Return to the emergency room for any new or worsening symptoms. Critical care attestation.: If time is entered above; I have spent that time in minutes in the direct care of this critically ill patient, excluding procedure time. ED Disposition Clinical Impression: Upper respiratory infection Qualifiers: URI type: unspecified URI Qualified Code(s): J06.9 - Acute upper respiratory infection, unspecified Conjunctivitis Qualifiers: Conjunctivitis type: acute Acute conjunctivitis type: unspecified Laterality: right Qualified Code(s): H10.31 - Unspecified acute conjunctivitis, right eye Disposition: DC-01 TO HOME OR SELFCARE Is pt being admited?: No Does the pt Need Aspirin: No Condition: Stable Instructions: Conjunctivitis (ED), Upper Respiratory Infection (ED) Additional Instructions: please use medication as prescribed. please drink plenty of water. may use Tylenol or ibuprofen for any discomfort. may take over the counter medications for symptomatic relief. May use throat spray over the counter for throat discomfort. may use a humidifier. follow up with a primary care doctor in 3 days. Return to the emergency room for any new or worsening symptoms. Prescriptions: Polymyxin B Sulf/Trimethoprim [Polytrim Eye Drops] 1 drop OD QID 7 Days #1 bottle Referrals: [facility] [Provider Group] - 2-3 Days [facility] [Outside] - 2-3 Days [facility] [Outside] - 2-3 Days Forms: Work/School Release Form(ED) Time of Disposition: 09:34 Print Language: LITHUANIAN
== END 2019-02-02 09:53 | disposition home or self-care (01) ==
LOC: ED 08:53
DX: H10.31 Unspecified acute conjunctivitis, right eye (principal); J06.9 Acute upper respiratory infection, unspecified
CPT/HCPCS: 99282